=== PATIENT | male | born 1960 | race Caucasian/White ===

== ENCOUNTER 2019-10-18 12:41 | Observation (INO) | payer OTHER, SELFPAY ==
[2019-10-17 15:12] VITALS: BMI 30.5
[2019-10-17 17:24] VITALS: BMI 30.5
[2019-10-18] VITALS (13 sets, daily range): BP systolic 94–161; BP diastolic 65–83; PULSE 77–110; RESP 11–18; TEMP 36.4–36.7; O2SAT 93–98
[2019-10-18 06:24] LABS: Glucose Point of Care 168 mg/dL (70-110)
[2019-10-18] MEDS: sodium chloride 0.9% 1,000 ML 30 ML IV (06:28)
--- NOTE | 2019-10-18 06:49 | ANES.PREANES ---
Pre-Anesthetic Assessment Pre-Anesthetic Assessment: Height/Weight: Height 1.83 m Weight 102.058 kg Temp Pulse Resp BP Pulse Ox 97.5 F L 77 18 140/81 98 10/18/19 06:07 10/18/19 06:07 10/18/19 06:07 10/18/19 06:07 10/18/19 06:07 Preop Diagnosis: Neck pain Proposed Procedure: Operation Date: 10/18/19 07:00 Proposed Procedures p Anterior Cervical Discectomy&Fusion 1Lev(Not Applicable) - Kilo Eden MD Familial anesthetic complications: No trouble with anesthesia Was Beta Deven taken within 24 hours: N/A Last intake: Intake Last Liquid Date 10/17/19 Last Liquid Time 20:00 Last Solid Date 10/17/19 Last Solid Time 20:00 Social: Social History: Tobacco (former 2 ppd), No alcohol and No tobacco Exam: Pre-Anes Outpt Exam: alert, oriented x 3, clear to auscultation bilaterally and regular rate & rhythm Airway: Cervical ROM: Other (limited extension due to myelopathy) MP: 4 Additional comments: missing Pulmonary: Pulmonary: None reported CV/HEM: CV/HEM: HTN : : None reported Hepatic: Hepatic: None reported GI: GI: None reported Metabolic: Metabolic: DM and Hyperlipidemia Comments: chapo [facility] [place]/sk: Comments: neck pain Neuropsych: Neuropsych: None reported Anesthetic Plan: ASA status: II Anesthesia: General Risk of > 500 ml blood loss (7ml/kg in children): No Meds/Allergies Current Medications: Current Medications Generic Name Dose Route Start Last Admin Trade Name Freq PRN Reason Stop Dose Admin Sodium Chloride 1,000 mls @ 30 ml s/hr 10/18/19 06:15 10/18/19 06:28 Sodium Chloride 0.9% IV 10/19/19 06:14 30 mls/hr .Q24H ALLIE Administration PFSH Anesthesia PFSH: Social History (Updated 10/17/19 @ 14:44 by Ginger Myers) Smoking and tobacco status: former smoker Alcohol intake: former Data Anesthesia Other Labs: Laboratory Results - last 48 hr 10/18/19 06:18 POC Glucose 168 Cardiac Studies: No Data to Display
--- NOTE | 2019-10-18 07:03 | PM.HPUD ---
H&P update H&P Update: DATE OF SURGERY/PROCEDURE: 10/18/19 DATE H&P PERFORMED: 10/12/19 H&P UPDATE INFORMATION: H&P completed within last 30 days, No changes to prior documentation and H&P to be scanned into chart PREOP DIAGNOSIS: Intervertebral disc disorder with myelopathy, midcervical PLANNED PROCEDURE: Operation Date: 10/18/19 07:00 Proposed Procedures Anterior Cervical Discectomy/fusion/fixation, C4-C5 Full H&P Medications/Allergies: Current Medications: Current Medications Generic Name Dose Route Start Last Admin Trade Name Freq PRN Reason Stop Dose Admin Sodium Chloride 1,000 mls @ 30 ml s/hr 10/18/19 06:15 10/18/19 06:28 Sodium Chloride 0.9% IV 10/19/19 06:14 30 mls/hr .Q24H ALLIE Administration Perinent History: Medical/Surgical History: Medical History (Updated 10/15/19 @ 08:52 by TRISTAN Garay) Hypertension (Chronic) Family History: Family History (Updated 10/12/19 @ 15:10 by Leti Calix LPN) Other Diabetes Social History: Social History Smoking and tobacco status: former smoker Alcohol intake: former
[2019-10-18] MEDS: vancomycin 1,000 MG in sodium chloride 0.9% 250 ML 250 MG IV (07:32)
--- NOTE | 2019-10-18 07:32 | PM.OP2 ---
 Brief Operative Note: Date of procedure: 10/18/19 Pre-op diagnosis: Intervertebral disc disorder with myelopathy, midcervical Post-op diagnosis: other (Same, with instability of joint) Procedure Done: C4-C5 ACDFF Surgeon: Kilo Eden Estimated blood loss (mL): 60 Complications: None. Post-op Plan: To PACU, then surgical bell. Condition: stable Disposition: PACU Coding Level of Care Code Acute Nursing Informatics Clinical Analyst for Myriam Cuadra
--- NOTE | 2019-10-18 07:38 | XR_ITS ---
WS: [id number] INTRAOPERATIVE LATERAL CERVICAL SPINE HISTORY: surgery COMPARISON: 06/15/2019 Lateral radiograph obtained in the OR with a metallic marker indicating the anterior C3-4 disc space. Patient is intubated. XR/XR cervical spine [facility] [id number] IMPRESSION: Intraoperative planning marker at anterior C3-4 disc level.
--- NOTE | 2019-10-18 08:17 | SUR.OPER ---
SURGIFOAM 1 SPONGE WAS USED IN THE NECK. LOT [id number] EXP 03/26/23.
--- NOTE | 2019-10-18 08:26 | XR_ITS ---
WS: [id number] INTRAOPERATIVE LATERAL CERVICAL SPINE HISTORY: SURGERY COMPARISON: 06/15/2019 Lateral radiograph obtained in the OR with a metallic marker indicating the anterior C4-5 disc level. Soft tissue spacers are now present. XR/XR cervical [facility] [id number] IMPRESSION: Intraoperative planning marker at anterior C4-5 disc space.
--- NOTE | 2019-10-18 08:58 | XR_ITS ---
WS: [id number] CERVICAL SPINE 2 VIEWS HISTORY: Recent surgical surgery. COMPARISON: Study earlier the same day. Interval placement of an anterior cervical plate and interbody spacer at C4-5. No complications are e vident. Endotracheal tube has been removed. XR/XR cervical spine 3V* [id number] IMPRESSION: Satisfactory postoperative anterior cervical fusion plate and screws at C4-5.
--- NOTE | 2019-10-18 11:57 | SUR.PHASEI ---
1155 PATIENT TO PACU AT THIS TIME FROM OR VIA [facility]. RR EVEN AND NON LABORED. PWD. PLACED ON SIMPLE MASK AT 8L. SPO2 98%. DRESSING TO ANTERIOR NECK, CDI. [place] COLAR IN PLACE.
--- NOTE | 2019-10-18 12:41 | SUR.PHASEI ---
1227 PATIENT TO MED SURG AT THIS TIME. A/OX3. RR EVEN AND UNLABORED. DRESSING TO ANTERIOR NECK, SMALL SPOT OF BLOOD NOTED. COLLAR IN PLACE. PATIENT AMBULATORY FROM GURNEY TO BED WITH STEADY GAIT. NO FAMILY PRESENT IN WAITING ROOM.
[2019-10-18] MEDS: docusate sodium 100 mg Capsule PO (17:09)
[2019-10-18] MEDS: sodium chloride 0.9% SDV 10 mL (17:11)
[2019-10-18] MEDS: levofloxacin-dextrose 5 % 750 MG/150 ML PREMIX 150 MG IV (17:11)
--- NOTE | 2019-10-18 20:27 | PM.DCS ---
Discharge Providers Date of Admission: 10/18/19 12:41 Date of Discharge: Date of Discharge: October 18, 2019 Attending Provider at Admission: Kilo Eden MD Attending Provider at Discharge: Kilo Eden MD Primary Care Provider: EMMA IZQUIERDO Diagnoses at Discharge Discharge Diagnosis (1) Cervical disc disorder with myelopathy of mid-cervical region: Status: Acute Problem details: Doing well after C4-C5 ACDFF performed earlier today. He appears reasonable for discharge home today, as desired. (2) Instability of joint: Status: Acute Reason for Visit Reason for Visit: Reason For Visit: Cervical Disc Disorder With Myelopathy of Mid Cerv Brief History: The patient is a 59-year-old white male with symptomatic, radiographically confirmed cervical disc/joint disease and associated neural impingement. Imaging studies demonstrated dominant canal compromise at C4-C5, with associated mild spondylolisthesis. Conservative treatment measures had not provided adequate lasting symptom relief. After review of the diagnostic and treatment options with the risks/potential benefits/rationale for each, the patient requested to proceed with surgical decompression/fusion/fixation at the C4-C5 level. Hospital Course Hospital Course: Patient underwent C4-C5 anterior cervical discectomy/fusion/fixation on 10/18/2019. He tolerated the procedure well, and reported improvement in some preoperative symptoms immediately following surgery. He completed preoperative and postoperative intravenous antibiotic doses, and the physical therapy postoperative spine protocol. He was ambulatory, voiding, and tolerating regular diet prior to requested discharge home on the evening of the date of surgery. Physical Exam Const: COMMON NORMALS: no apparent distress GENERAL APPEARANCE: cooperative and comfortable Neck/C-Spine: CERVICAL SPINE: Yes collar present Resp: COMMON NORMALS: normal respiratory effort EFFORT & INSPECTION: Yes able to speak in complete sentences and No stridor Neuro: COMMON NORMALS: moves all extremities and no focal motor deficits (bilateral upper extremities) Psych: COMMON NORMALS: speech normal ATTITUDE: Yes calm and Yes engaged ACTIVITY/MOTOR BEHAVIOR: Yes appropriate eye contact SPEECH: Yes normal speech MOOD & AFFECT: Yes euthymic mood INSIGHT: insight good JUDGEMENT: judgment good Skin: WOUNDS: Yes surgical site (surgical site dressing clean/dry/intact) Discharge Data Data Completed and Pending: Completed Studies During Hospitalization Category Date Time Status XR cervical spine 1 view portable [ XR cervical spine Exams 10/18/19 07:38 Completed 1ort [id number]] Rou justin XR cervical spine 1 view portable [ XR cervical spine Exams 10/18/19 08:26 Completed 1Vport [id number]] Rou justin XR cervical spine 3V* [id number] Routine Exams 10/18/19 08:58 Completed Pathology: Surgic al [PTH] Routine Pth 10/18/19 11:57 Completed Imaging^: c-spine x-rays:: Attestation: I personally reviewed and interpreted this imaging study as follows: (Postop changes of recent C4-C5 ACDFF, with no noted complications.) Procedures Performed: C4-C5 anterior cervical discectomy with osteophytectomy. C4-C5 anterior cervical plate and screw fixation. C4-C5 placement of intervertebral prosthetic device. C4-C5 anterior cervical fusion utilizing morselized autograft. IV antibiotics. Physical Therapy. Vitals: Last Vital Signs Temp 97.6 F 10/18/19 17:53 Pulse 99 10/18/19 13:45 Resp 18 10/18/19 17:53 BP 150/83 10/18/19 13:45 Pulse Ox 95 10/18/19 17:53 Discharge Plan Discharge Patient Disposition: Home, Self-Care Condition: Stable Prescriptions: [place] 7.5-325 mg tablet 1 tab PO Q4H PRN (Reason: pain) Qty: 20 RF: 0 Continued lisinopril 20 mg tablet 20 mg PO DAILY RF: 0 meloxicam 7.5 mg tablet 7.5 mg PO DAILY RF: 0 metformin 500 mg tablet 500 mg PO DAILY RF: 0 tizanidine 4 mg capsule 4 mg PO BID PRN (Reason: Muscle Spasm) RF: 0 acetaminophen [Tylenol Arthritis Pain] 650 mg tablet extended release 650 mg PO Q8H RF: 0 cholecalciferol (vitamin D3) 50,000 unit capsule 50,000 unit PO DAILY RF: 0 atorvastatin 80 mg Tablet 40 mg PO DAILY RF: 0 Discharge Orders: Discharge Order (Routine); Ordered 10/18/19 Ordered By: Kilo Eden Referrals: Kilo Eden MD [Physician] - 2 weeks (AP/lateral c-spine x-rays prior to visit. Please schedule an appointment with Dr. Eden for 2 weeks from today. Please contact [place] for prior authorization prior to recieving x rays and appointment with Dr. Eden. Please bring your medication with you to appointment.) Discharge Diet: Usual diet Discharge Activity: Limit activity as instructed Patient Instructions: Hydrocodone/Acetaminophen (By mouth), Hypertension, Anterior Cervical Discectomy (DC) Activity Restrictions/Additional Instructions: Activity -Cervical fusion: Wear cervical collar 24 hours a day. Change as necessary for showering, shaving, or if it becomes soiled. -No lifting or reaching overhead. - No driving until office followup visit - No lifting/pushing/pulling over 10 pounds - Avoid twisting or bending - Walking is encouraged - Home exercise per physical therapist - You may engage in sexual intercourse at any time as long as it is comfortable for you - Check with your doctor before returning to work. Notify your doctor if you develop: - temperature of 101.5 degrees F. or higher - redness or swelling of the incision - Foul drainage - increasing pain - increasing numbness or tingling in the arms or legs - New or increasing problems with vision, balance, memory, speaking, nausea or vomiting Hygiene: - Showering is okay - No tub baths or soaking Other: Remove outer bandage 3 days after surgery. If you have paper strips, leave in place until they fall off on their own. If you have stitches, keep your incision dry until the stitches are removed. Your doctor's office is available to answer any questions from 7 AM to 5:00 PM, Tuesday through at [phone]. After hours, go to the emergency room at [facility] or call 911 for assistance. Discharge Date/Time: 10/18/19 18:46 Discharge Attestations Time Spent in Discharge Care*: other (postop global) Quality Metrics Clinical Quality Measures During this hospital stay, did patient experience: None Coding Level of Care Code Acute Travel Registered Nurse Icu for Arong Fwd Exam Problem Focused Diagnoses Cervical disc disorder with myelopathy of mid-cervical region M50.020 Instability of joint M25.30 Comment postop global
--- NOTE | 2019-10-19 11:27 | PM.OP ---
Operative Report Date of procedure: 10/18/19 Pre-op Diagnosis: Intervertebral disc disorder with myelopathy, midcervical Post-op diagnosis: same (With instability of joint) Procedure Done: C4-C5 anterior cervical discectomy with osteophytectomy. C4-C5 anterior cervical plate/screw fixation. Placement of C4-C5 intervertebral prosthetic device. C4-C5 anterior cervical fusion with morselized autograft. Implants: ACIS ProTi Spacer Synthes Vectra plate/screws Specimens removed/disposition: C4-C5 disc to pathology. Pathology: other (C4-C5 disc) Surgeon: Kilo Eden Anesthesia: General Estimated blood loss (mL): 60 Complications: None. Condition: stable Disposition: PACU Brief History: The patient is a 59-year-old white male with symptomatic, radiographically confirmed cervical disc/joint disease and associated neural impingement. Imaging studies demonstrated dominant canal compromise at C4-C5, with associated mild spondylolisthesis. Conservative treatment measures had not provided adequate lasting symptom relief. After review of the diagnostic and treatment options with the risks/potential benefits/rationale for each, the patient requested to proceed with surgical decompression/fusion/fixation at the C4-C5 level. Procedure: After routine preoperative evaluation and informed consent were obtained, the patient was taken to the Operating Room and positioned supine on the operating table. He was placed under general endotracheal anesthesia by Anesthesia personnel. He was fit in the [place] tongs for the application of in-line cervical traction. The anterolateral neck on the left was prepared with hair clippers, and a proposed transverse skin incision was marked with a sterile skin marker. Regional anatomy and intraoperative radiography were utilized for localization purposes. The area was scrubbed with Betadine and prepped with DuraPrep. Sterile towels and drapes were applied, and an [place] surgical barrier was placed. The proposed incision site was infiltrated with 1% Xylocaine with Epinephrine. A skin incision was made and carried down into the subcutaneous tissues. The platysma was identified and divided in the direction of its fibers. A plane was dissected just medial to the carotid sheath and lateral to the midline esophagus and trachea. The prevertebral soft tissues were bluntly dissected free of the anterior margin of the cervical spine. Longus coli muscles were freed from their medial attachments, and deep self-retaining retractors were placed. Marked anterior osteophyte overgrowth was demonstrated. Intraoperative radiography verified the desired surgical level. Rongeurs and the [place] high speed drill with jaswant jaja were utilized to expose the disc space anteriorly. The C4-C5 interspace was then entered, and discectomy was accomplished utilizing various curettes, pituitary rongeurs, and the high speed drill. Posterior marginal osteophytes were resected with the thin-foot plate [place] rongeurs. The medial aspects of the neural foramina were enlarged in a similar manner. Posterior longitudinal ligament was divided and resected as necessary to further the decompression. The drill/jaswant jaja were used for ostephyte resection and endplate preparation. At the completion of the decompression, no residual central canal or neural foraminal impingement was identified upon probing with the right angle nerve hook. Decompression was felt to be adequate and the disc space was sized. A 9 mm ACIS ProTi lordotic/medium Spacer was chosen. The Spacer was packed with morselized autograft obtained from the osteophytectomy portions of the procedure. The Spacer was placed within the C4-C5 interspace while in-line cervical traction was applied via the [place] tongs. Spacer placement was facilitated by use of the mallet and impaction tools. Once the Spacer was in good position, a Synthes Vectra plate of the desired size was chosen. The plate was secured to the C4 and C5 vertebral bodies with bilateral 4 mm x 14 mm self-drilling screws. Final screw tightening was performed, and the screws were noted to engage the locking mechanisms within the plate at each site. The construct was inspected and found to be in good position and secure. The wound was copiously irrigated with sterile saline and antibiotic irrigation. Hemostasis was ensured with the bipolar electrocautery. Wound closure was performed in multiple layers with 2-0 Vicryl Plus simple interrupted closure of the platysma and deep dermis as separate layers. Final skin closure was performed with 4-0 Vicryl Plus in a running subcuticular pattern. Steri-Strips were applied, and a sterile dressing was placed. The patient was released from the [place] tongs and fit in a [place] collar. He was extubated without incident. He was transferred onto the Recovery Room cart in the supine position. The patient tolerated the procedure well.
== END 2019-10-18 18:46 | disposition home or self-care (01) ==
LOC: MEDSURG 12:42
PROVIDERS: Admitting Provider Specialist; Visit Provider Specialist
PROC: 0RB30ZZ Excision of Cervical Vertebral Disc, Open Approach (ICD-10-PCS; CPT 22551; principal; 2019-10-18 07:00)
DX: M50.021 Cervical disc disorder at C4-C5 level with myelopathy (principal); M53.2X2 Spinal instabilities, cervical region; I10 Essential (primary) hypertension; Z83.3 Family history of diabetes mellitus; Z87.891 Personal history of nicotine dependence
CPT/HCPCS: 20936; 22551; 22853; 12345; 36416; 72020; 72040; 82962; 88304; 96365; 97110; 97161; C1713; G0378; J0131; J1100; J1885; J1956; J2001; J2405; J2704; J3010; J3370; J3490; J7030; J7050; L0172; L0174

== ENCOUNTER 2019-11-01 09:07 | Outpatient (CLI) | payer OTHER, SELFPAY ==
--- NOTE | 2019-11-01 09:19 | XR_ITS ---
WS: [id number] CERVICAL SPINE 2 VIEWS HISTORY: Arthrodesis status COMPARISON: 10/18/2019 Anterior cervical fusion hardware at C4-5 with interbody spacer. No change in alignment of the fusion or interbody spacer. No subsidence. Large bridging anterior osteophytes at C2 and C3. Soft tissues are normal. XR/XR cervical spine 3V* [id number] IMPRESSION: 1. Anterior cervical fusion with interbody spacer at C4-5 is intact with no ch elizabeth. 2. Large anterior bridging osteophytes at C2 and C3.
== END 2019-11-01 09:08 | disposition home or self-care (01) ==
PROVIDERS: Visit Provider Specialist
DX: Z98.1 Arthrodesis status (principal); M25.78 Osteophyte, vertebrae
CPT/HCPCS: 72040

== ENCOUNTER 2019-11-29 09:47 | Outpatient (CLI) | payer OTHER, SELFPAY ==
--- NOTE | 2019-11-29 10:30 | CT_ITS ---
WS: [id number] CT CERVICAL SPINE TECHNIQUE: Noncontrast CT of the cervical spine with coronal and sagittal reformatted images. CLINICAL INFORMATION: s/p cervical spinal fusion COMPARISON: MRI June 15, 2019 DLP: 1880.[address] scans at [facility] use at least one of these dose optimization techniques: automat ed exposure control; mA and/or kV adjustment per patient size (includes targeted exams where dose is matched to clinical indication); or iterative reconstruction. FINDINGS: Straightening of the normal cervical lordosis. Postoperative changes are new since the prior MRI with anterior interbody cervical fusion C4-5. No evidence of hardware loosening. C2-C3: Mild right greater than left bony foraminal narrowing. Spinal canal is patent. Mild facet arth ropathy. C3-C4: Disc osteophyte complex with endplate ridging. Moderate left and mild right bony foraminal misty rowing. Mild central canal stenosis. C4-C5: Postoperative changes anterior interbody cervical fusion. Moderate bilateral bony foraminal na rrowing. Mild central canal stenosis. C5-C6: Disc osteophyte complex with endplate ridging. Mild bilateral bony foraminal narrowing. Spinal canal is patent. C6-C7: Moderate to severe left and mild right bony foraminal narrowing. Spinal canal is patent. C7-T1: No significant disc bulging. Spinal canal and foramen are patent. Visualized posterior nasopharynx: Normal. Prevertebral soft tissues: Normal. CT/CT cervical spin wo con* [id number] IMPRESSION: 1. Postoperative changes ACDF C4-C5. No evidence of hardware loosening. 2. No high-grade central canal stenosis. Mild central canal narrowing C3-C4 an d C4-C5. 3. Bony foraminal narrowing worse at left C3-C4, bilateral C4-C5, and left C6- C7.
== END 2019-11-29 09:48 | disposition home or self-care (01) ==
LOC: RADWPI 09:57
PROVIDERS: Visit Provider Licensed Practical Nurse
DX: Z98.1 Arthrodesis status (principal)
CPT/HCPCS: 72125

== ENCOUNTER 2019-12-18 07:52 | Outpatient (CLI) | payer OTHER, SELFPAY ==
--- NOTE | 2019-12-18 09:00 | CT_ITS ---
WS: [id number] CT CERVICAL SPINE TECHNIQUE: Noncontrast CT of the cervical spine with coronal and sagittal reformatted images. CLINICAL INFORMATION: S/P cervical fusion COMPARISON: November 29, 2019 DLP: 3033.[address] scans at [facility] use at least one of these dose optimization techniques: automat ed exposure control; mA and/or kV adjustment per patient size (includes targeted exams where dose is matched to clinical indication); or iterative reconstruction. FINDINGS: Straightening of the normal cervical lordosis. Anterior interbody cervical fusion C4-5. Anterior hype rtrophic changes of the cervical spine. Bony ankylosis in the lower cervical and upper thoracic spine . Normal C1-2 articulation. Straightening of the normal cervical lordosis. Postoperative changes are new since the prior MRI with anterior interbody cervical fusion C4-5. No evidence of hardware loosening. C2-C3: Mild right greater than left bony foraminal narrowing. Spinal canal is patent. Mild facet arth ropathy. C3-C4: Disc osteophyte complex with endplate ridging. Mild to moderate left and mild right bony salty inal narrowing. Mild central canal stenosis. C4-C5: Postoperative changes anterior interbody cervical fusion. Moderate bilateral bony foraminal na rrowing. Mild central canal stenosis. C5-C6: Disc osteophyte complex with endplate ridging. Mild bilateral bony foraminal narrowing. Spinal canal is patent. C6-C7: Moderate left and mild right bony foraminal narrowing. Spinal canal is patent. C7-T1: No significant disc bulging. Spinal canal and foramen are patent. CT/CT cervical spin wo con* [id number] IMPRESSION: 1. Straightening of the normal cervical lordosis with intervertebral cervical fusion C4-5. No evidence of hardware loosening. Hardware appears in good positi on. 2. Mild central canal stenosis C3-C4 and C4-C5. 3. Multilevel mild to moderate bony foraminal narrowing worse at left C3-C4, b ilateral C4-5, and left C6-C7.
== END 2019-12-18 07:53 | disposition home or self-care (01) ==
LOC: RADWPI 07:56
PROVIDERS: Visit Provider Licensed Practical Nurse
DX: Z98.1 Arthrodesis status (principal); M48.02 Spinal stenosis, cervical region
CPT/HCPCS: 72125

== ENCOUNTER → 2020-02-11 13:29 | Outpatient (BNVA) | payer OTHER, SELFPAY | PROVIDERS: Visit Provider Specialist | DX: M50.30 Other cervical disc degeneration, unspecified cervical region (principal); M75.51 Bursitis of right shoulder; M54.81 Occipital neuralgia; Z87.891 Personal history of nicotine dependence | CPT/HCPCS: 20550; 99214 ==

== ENCOUNTER 2020-02-26 07:04 | Outpatient (CLI) | payer OTHER, SELFPAY ==
--- NOTE | 2020-02-26 08:00 | MR_ITS ---
WS: [id number] MRI CERVICAL SPINE HISTORY: neck pain COMPARISON: 06/15/2019 and 12/18/2019 Straightening of the normal cervical lordosis. Multilevel degenerative changes throughout the cervica l spine. Anterior cervical fusion at C4-5 with interbody spacer. No marrow edema or acute fracture. M ild stable anterior wedging of T7. Anterior hypertrophic bone changes are noted greatest at the C2 le molly. Signal within the cervical cord is normal. Visualized posterior fossa is unremarkable. Craniocervical junction, C1 and C2 relationship, odontoid process and soft tissues are normal. C2-C3: Mild bilateral foraminal stenosis due to osteophytes. C3-C4: Hypertrophic osteophytic ridging. Mild encroachment upon the ventral thecal sac. Mild central and bilateral foraminal stenosis. C4-C5: Moderate diffuse osteophytic ridging around the vertebral bodies with disc bulging and facet a rthritis. Moderate central with moderate to severe bilateral foraminal stenosis. C5-C6: Diffuse osteophytic ridging and disc disease with facet arthropathy. Moderate central and laurita ateral foraminal stenosis. C6-C7: Diffuse osteophytic ridging and diffuse disc bulging. Mild central stenosis with moderate bila teral foraminal stenosis, greatest stenosis on the LEFT. C7-T1: Normal. Paravertebral soft tissues are negative for acute process. MR/MR cervical spin wo con* [id number] IMPRESSION: 1. Multilevel significant central and foraminal stenosis. 2. Prior anterior cervical fusion at C4-5 with interbody spacer is intact. 3. No acute fracture. 4. Moderate central stenosis with moderate to severe bilateral foraminal steno sis at C4-5. 5. Moderate central and bilateral foraminal stenosis at C5-6. 6. Mild central stenosis and moderate bilateral foraminal stenosis at C6-7.
--- NOTE | 2020-02-26 08:45 | MR_ITS ---
WS: [id number] MRI RIGHT SHOULDER HISTORY: shoulder pain COMPARISON: 07/24/2018 TECHNIQUE: Multiplanar sequences of the shoulder joint are submitted. Moderate AC joint hypertrophy. There is a small amount of increased signal along the AC joint. Bony h ypertrophy of the distal clavicle with mild impingement upon the supraspinatus muscle. There is a sma ll osteophyte from the distal undersurface of the acromion with mild encroachment upon the rotator cu ff. No os acromion. There is a very small amount of fluid in the subacromial and subdeltoid bursa. No rotator cuff tear i s identified. Increased signal and thickening of the subscapularis tendon from tendinopathy. There is micro metallic artifact present suggestive of prior surgery on the RIGHT shoulder. No muscle atrophy or retraction of the tendons. No muscle edema. Biceps tendon remains in normal position. No fluid al mahesh the tendon sheath. No significant narrowing of the glenohumeral joint. There is intrasubstance degeneration of the labru m but no complete tear is identified. MR/MR shoulder RT wo con* [id number] IMPRESSION: 1. Moderate AC joint arthropathy with mild encroachment upon the supraspinatus muscle. 2. Subscapularis tendinopathy. No rotator cuff tear is identified. 3. Mitral metallic artifact is present around the shoulder greatest at the AC joint suggesting prior surgery. 4. No labral tear.
== END 2020-02-26 07:05 | disposition home or self-care (01) ==
LOC: RADSHAW 07:08
PROVIDERS: Visit Provider Specialist
DX: M25.511 Pain in right shoulder (principal); M12.811 Other specific arthropathies, not elsewhere classified, right shoulder; M54.2 Cervicalgia; M48.02 Spinal stenosis, cervical region; M43.22 Fusion of spine, cervical region
CPT/HCPCS: 72141; 73221

== ENCOUNTER → 2020-03-20 07:50 | Outpatient (BNVA) | payer OTHER, SELFPAY | PROVIDERS: Visit Provider Specialist | DX: M75.51 Bursitis of right shoulder (principal); M54.81 Occipital neuralgia; M50.020 Cervical disc disorder with myelopathy, mid-cervical region, unspecified level; M79.7 Fibromyalgia; Z71.89 Other specified counseling | CPT/HCPCS: 64450; 99213; J1030; J3490 ==

== ENCOUNTER → 2020-04-24 09:49 | Outpatient (BNVA) | payer OTHER, SELFPAY | PROVIDERS: Visit Provider Specialist | DX: M79.7 Fibromyalgia (principal); M50.020 Cervical disc disorder with myelopathy, mid-cervical region, unspecified level; F17.220 Nicotine dependence, chewing tobacco, uncomplicated | CPT/HCPCS: 99213; J1030; J3490 ==

== ENCOUNTER → 2020-07-09 12:27 | Outpatient (BNVA) | payer OTHER, SELFPAY | PROVIDERS: Visit Provider Specialist | DX: G24.3 Spasmodic torticollis (principal); Z98.890 Other specified postprocedural states | CPT/HCPCS: 99214 ==

== ENCOUNTER → 2021-03-09 09:51 | Outpatient (BNVA) | payer OTHER, SELFPAY | PROVIDERS: PCP Nurse Practitioner Family; Visit Provider Specialist | DX: M50.020 Cervical disc disorder with myelopathy, mid-cervical region, unspecified level (principal); G24.3 Spasmodic torticollis; F17.220 Nicotine dependence, chewing tobacco, uncomplicated | CPT/HCPCS: 99213; 99214 ==

== ENCOUNTER → 2021-07-23 16:03 | Outpatient (BNVA) | payer OTHER, SELFPAY | PROVIDERS: PCP Nurse Practitioner Family; Visit Provider Nurse Practitioner Family | DX: M25.519 Pain in unspecified shoulder (principal); G89.11 Acute pain due to trauma; M25.559 Pain in unspecified hip | CPT/HCPCS: 73030; 73502; 80307 ==

== ENCOUNTER → 2021-09-02 12:05 | Outpatient (BNVA) | payer OTHER, SELFPAY | PROVIDERS: PCP Nurse Practitioner Family; Visit Provider Nurse Practitioner Family | DX: S49.91XA Unspecified injury of right shoulder and upper arm, initial encounter (principal); X58.XXXA Exposure to other specified factors, initial encounter; M19.011 Primary osteoarthritis, right shoulder | CPT/HCPCS: 73030 ==

== ENCOUNTER → 2022-04-27 08:10 | Outpatient (BNVA) | payer OTHER, SELFPAY | PROVIDERS: PCP Nurse Practitioner Family; Visit Provider Surgery | DX: K42.0 Umbilical hernia with obstruction, without gangrene (principal) | CPT/HCPCS: 99204 ==

== ENCOUNTER 2022-05-06 07:52 | Day surgery (SDC) | payer OTHER, SELFPAY ==
[2022-05-05 15:51] VITALS: BMI 29.8
[2022-05-06] VITALS (10 sets, daily range): BP systolic 112–178; BP diastolic 77–101; PULSE 62–80; RESP 12–18; TEMP 36.2–36.7; O2SAT 95–100
--- NOTE | 2022-05-06 08:07 | P.HP_ITS ---
Same Day Surgery H&P Indication for Procedure/HPI DATE OF PROCEDURE: May 06, 2022 CHIEF COMPLAINT/INDICATIONFOR SURGICAL PROCEDURE: hernia repair PREOP DIAGNOSIS: umbilical hernia PLANNED PROCEDURE: Operation Date: 05/06/22 09:30 Proposed Procedures p lap poss open umblicial hernia repair 17882(Not Applicable) - Sukhjinder Cobos MD Medications/Allergies* Home Medications Medication Instructions Recorded Confirmed Type acetaminophen 650 mg 650 mg PO Q8H PAIN 10/12/19 05/05/22 History tablet,extended release (Tylenol Arthritis Pain) cholecalciferol (vitamin D3) 1,250 50,000 unit PO DAILY 10/12/19 05/06/22 History mcg (50,000 unit) capsule lisinopril 20 mg tablet 20 mg PO DAILY 10/12/19 05/06/22 History metformin 500 mg tablet 500 mg PO BID 10/12/19 05/06/22 History tizanidine 4 mg capsule 4 mg PO BID PRN Muscle Spasm 10/12/19 05/05/22 History atorvastatin 80 mg tablet 40 mg PO DAILY 10/17/19 05/06/22 History glipizide 5 mg tablet 5 mg PO DAILY 04/27/22 05/06/22 History cyclobenzaprine 10 mg tablet 10 mg PO BEDTIME 05/05/22 05/05/22 History Allergies/Adverse Reactions Allergy/AdvReac Type Severity Reaction Status Date / Time Penicillins AdvReac Mild ADV-Weaknes Verified 04/27/22 08:26 s Pertinent History/Comorbid Conditions* Medical History (Updated 03/31/22 @ 11:54 by TRISTAN Murillo) Acute shoulder pain due to trauma Back pain Cervical disc disorder with myelopathy of mid-cervical region Hip pain, acute Hypertension Lumbar back pain with radiculopathy affecting left lower extremity Lumbar back pain with radiculopathy affecting right lower extremity Post-operative state Traumatic injury of right shoulder Surgical History (Updated 04/27/22 @ 08:55 by Sukhjinder Cobos MD) History of cervical spinal surgery (10/18/19) 10/18/2009 C4-C5 GAIL, Dr. Eden Status post colonoscopy Status post shoulder surgery Family History (Updated 11/29/19 @ 10:42 by Jessica Hyatt LPN) Diabetes Mother Social History Smoking and tobacco status: former smoker Household members: none Marital status: Single Current occupation: [employer] in [place], [place] History of recent travel: Yes (travel from [facility]) Pertinent Exam Findings alert, oriented x 3 and regular rate & rhythm Recommendations Surgery/Procedure today Coding Level of Care Code Acute Telephoto Installer for Myriam Cuadra
[2022-05-06] MEDS: sodium chloride 0.9% 1,000 ML 30 ML IV (08:30)
--- NOTE | 2022-05-06 08:37 | P.ANESASSM_ITS ---
Pre-Anesthetic Assessment Height/Weight: Height 1.83 m Weight 99.79 kg Temp Pulse Resp BP Pulse Ox O2 Del Method 97.2 F L 71 18 178/100 97 05/06/22 08:08 05/06/22 08:08 05/06/22 08:08 05/06/22 08:08 05/06/22 08:08 05/06/22 08:08 Preop Diagnosis: umbilical hernia Operation Date: 05/06/22 09:30 Proposed Procedures p lap poss open umblicial hernia repair 52978(Not Applicable) - Sukhjinder Cobos MD Familial anesthetic complications: none Was Beta Deven taken within 24 hours: N/A Was Clonidine taken within 24 hours: N/A Last intake: Intake Last Liquid Date 05/05/22 Last Liquid Time 18:00 Last Solid Date 05/05/22 Last Solid Time 18:00 Social No alcohol and No tobacco Exam alert, oriented x 3, clear to auscultation bilaterally and regular rate & rhythm Airway Submandibular: within normal limits Cervical ROM: within normal limits Mallampati: Class II Dentition: chipped CV/HEM Hypertension Metabolic Diabetes Mellitus and Hyperlipidemia Musc/skel Lower Back Pain chronic opioid Anesthetic Plan ASA status: 3 Anesthesia: General Medications/Allergies Home Medications Medication Instructions Recorded Confirmed Last Taken Type acetaminophen 650 mg 650 mg PO Q8H PAIN 10/12/19 05/05/22 10/17/19 History tablet,extended release (Tylenol Arthritis Pain) cholecalciferol (vitamin D3) 1,250 50,000 unit PO DAILY 10/12/19 05/06/22 05/05/22 History mcg (50,000 unit) capsule lisinopril 20 mg tablet 20 mg PO DAILY 10/12/19 05/06/22 05/05/22 History metformin 500 mg tablet 500 mg PO BID 10/12/19 05/06/22 05/05/22 History tizanidine 4 mg capsule 4 mg PO BID PRN Muscle Spasm 10/12/19 05/05/22 10/17/19 History atorvastatin 80 mg tablet 40 mg PO DAILY 10/17/19 05/06/22 05/05/22 History gabapentin 300 mg capsule 300 mg PO QID #120 caps 03/28/20 05/06/22 05/05/22 Rx naproxen 500 mg tablet 500 mg PO BID PRN pain 30 days #60 01/13/21 05/05/22 Unknown Rx tabs glipizide 5 mg tablet 5 mg PO DAILY 04/27/22 05/06/22 05/05/22 History cyclobenzaprine 10 mg tablet 10 mg PO BEDTIME 05/05/22 05/05/22 Unknown History oxycodone-acetaminophen 5 mg-325 1 tab PO Q6H PRN pain #20 tabs 05/06/22 Unknown Rx mg tablet (Percocet) Allergies Allergy/AdvReac Type Severity Reaction Status Date / Time Penicillins AdvReac Mild ADV-Weaknes Verified 04/27/22 08:26 s [facility] Anesthesia Medical History Acute shoulder pain due to trauma Back pain Cervical disc disorder with myelopathy of mid-cervical region Hip pain, acute Hypertension Lumbar back pain with radiculopathy affecting left lower extremity Lumbar back pain with radiculopathy affecting right lower extremity Post-operative state Traumatic injury of right shoulder Surgical History (Updated 05/06/22 @ 08:11 by Sukhjinder Cobos MD) History of cervical spinal surgery (10/18/19) 10/18/2009 C4-C5 ACDFF, Dr. Eden History of umbilical hernia repair (05/06/22) Status post colonoscopy Status post shoulder surgery Family History Mother Diabetes Social History Smoking and tobacco status: former smoker Household members: none Marital status: Single Current occupation: [employer] in [place], [place] History of recent travel: Yes (travel from [facility]) Data Anesthesia Cardiac Studies: No Data to Display
[2022-05-06] MEDS: ceFAZolin 2,000 MG in sodium chloride 0.9% (plus) 50 ML 100 MG IV (09:08)
[2022-05-06] MEDS: fentaNYL 50 mcg/mL INJ 2mL IVP (10:13)
--- NOTE | 2022-05-06 10:22 | P.OP_ITS ---
Operative Report Date of procedure: May 06, 2022 Pre-op diagnosis: Symptomatic incarcerated umbilical hernia Post-op diagnosis: Incarcerated umbilical hernia measuring 4 x 4 cm containing omentum Procedure done: Laparoscopic repair of incarcerated umbilical hernia with Ventralight ST mesh measuring 11 x 11 cm Pathology: none sent Surgeon: Sukhjinder Cobos Anesthesia: General Condition: stable Disposition: PACU Procedure: The patient was taken to the Operating Room and was intubated under general anesthesia after the antibiotic had been administered. The abdomen was prepped and draped in a sterile manner. Using a 15 blade, a 2-cm incision was made in the left upper quadrant in the anterior axillary line and pneumoperitoneum was created using Verres needle. A 10 mm Carlos Alberto port was placed and 15 mm of pneumoperitoneum was created after a 10 mm 30? scope had been introduced. 5 mm port was placed at the level of the umbilicus on the left side under direct visualization. The omental fat within the hernial sac was reduced. A spinal needle was introduced through the abdominal wall and the edges of the hernial defect were marked and measured 4 x 4 cm. A 4 cm margin was marked on the abdominal wall on the outer edge of the hernial defect. 11 x [address] mesh was selected and 4 separate 2-0 [place] sutures were placed at the 4 corners of the mesh. Grannie needle was passed through the stab incisions and used to grasp the free ends of the [place] sutures which were then used to pull the mesh up against the abdominal wall; 5 mm SecurStraps were placed 1 cm apart along the edge of the mesh to hold it against the abdominal wall. At the end of this, it was noted that the mesh was well positioned over the hernial defect. 20 cc of saline mixed with 20cc of Exparel mixed with 20cc of 0.25% Marcaine was infiltrated in the midclavicular line bilaterally under laparoscopic visualization for a TAP block. All ports were removed under direct visuali zation and there was no bleeding noted from the port sites. The external oblique aponeurosis was approximated at LUQ port site using figure of eight 0 Vicryl suture. The subcutaneous tissue was approximated using 3-0 Vicryl sutures. The skin at port sites were closed using subcuticular 4-0 Monocryl suture. The stab incisions and the port sites were covered with Dermabond. Abdominal binder was placed at the end of the procedure and the patient was extubated and transferred to recovery room in stable condition.
--- NOTE | 2022-05-06 13:47 | ANE.PACU2 ---
Inpatient post-anesthesia follow up: Airway intact: Yes Vital signs: Temperature 98.1 F Pulse Rate 80 Respiratory Rate 18 Blood Pressure 165/82 Pulse Oximetry 99 Oxygen Delivery Me thod Room Air Oxygen Flow Rate 6 Fraction of Inspir ed Oxygen Hydration adequate: Yes Nausea and vomiting: No Pain level: 3 Mental status: Baseline
[2022-05-07 09:59] LABS: Glucose Point of Care 127 mg/dL (70-110)
== END 2022-05-06 11:44 | disposition home or self-care (01) ==
PROVIDERS: PCP Nurse Practitioner Family; Visit Provider Surgery
PROC: 0WQF4ZZ Repair Abdominal Wall, Percutaneous Endoscopic Approach (ICD-10-PCS; CPT 49653; principal; 2022-05-06 09:20)
DX: K40.30 Unilateral inguinal hernia, with obstruction, without gangrene, not specified as recurrent (principal); I10 Essential (primary) hypertension; E11.9 Type 2 diabetes mellitus without complications; E78.5 Hyperlipidemia, unspecified; Z79.891 Long term (current) use of opiate analgesic; Z87.891 Personal history of nicotine dependence; Z98.1 Arthrodesis status
CPT/HCPCS: 49653; 36416; 82962; C1781; C9290; J1100; J1170; J2405; J2704; J2710; J3010; J3490; J7030

== ENCOUNTER → 2022-05-18 08:16 | Outpatient (BNVA) | payer OTHER, SELFPAY | PROVIDERS: PCP Nurse Practitioner Family; Visit Provider Surgery | DX: Z98.890 Other specified postprocedural states (principal) | CPT/HCPCS: 99024 ==

== ENCOUNTER → 2022-11-18 11:40 | Outpatient (BNVA) | payer OTHER, SELFPAY | PROVIDERS: PCP Nurse Practitioner Family; Visit Provider Specialist | DX: G24.3 Spasmodic torticollis (principal); M50.020 Cervical disc disorder with myelopathy, mid-cervical region, unspecified level | CPT/HCPCS: 99214 ==

== ENCOUNTER → 2023-03-18 07:42 | Outpatient (BNVA) | payer OTHER, SELFPAY | PROVIDERS: Visit Provider Specialist | DX: G24.3 Spasmodic torticollis (principal) | CPT/HCPCS: 64616; J0585 ==

== ENCOUNTER → 2023-06-10 07:47 | Outpatient (BNVA) | payer OTHER, SELFPAY | PROVIDERS: Visit Provider Specialist | DX: G24.3 Spasmodic torticollis (principal); M50.021 Cervical disc disorder at C4-C5 level with myelopathy | CPT/HCPCS: 64616; J0585 ==

== ENCOUNTER → 2023-09-09 07:26 | Outpatient (BNVA) | payer OTHER, SELFPAY | PROVIDERS: Visit Provider Specialist | DX: G24.3 Spasmodic torticollis (principal) | CPT/HCPCS: 64616 ==

== ENCOUNTER → 2023-12-16 07:57 | Outpatient (BNVA) | payer OTHER, SELFPAY | PROVIDERS: Visit Provider Specialist | DX: G24.3 Spasmodic torticollis (principal); M50.020 Cervical disc disorder with myelopathy, mid-cervical region, unspecified level | CPT/HCPCS: 64616; J0585 ==

== ENCOUNTER → 2024-03-23 07:21 | Outpatient (BNVA) | payer OTHER, SELFPAY | PROVIDERS: Visit Provider Specialist | DX: G24.3 Spasmodic torticollis (principal); M50.020 Cervical disc disorder with myelopathy, mid-cervical region, unspecified level | CPT/HCPCS: 64616; J0585 ==

== ENCOUNTER → 2024-08-24 14:35 | Outpatient (BNVA) | payer OTHER, SELFPAY | PROVIDERS: Visit Provider Specialist | DX: G24.3 Spasmodic torticollis (principal); M50.020 Cervical disc disorder with myelopathy, mid-cervical region, unspecified level | CPT/HCPCS: 64616; J0585 ==

== ENCOUNTER → 2024-11-23 14:47 | Outpatient (BNVA) | payer OTHER, SELFPAY | PROVIDERS: Visit Provider Specialist | DX: G24.3 Spasmodic torticollis (principal) | CPT/HCPCS: 64616; J0585 ==

== ENCOUNTER → 2025-02-22 14:45 | Outpatient (BNVA) | payer OTHER, SELFPAY | PROVIDERS: Visit Provider Specialist | DX: G24.3 Spasmodic torticollis (principal) | CPT/HCPCS: 64616; J0585; J9999 ==

== ENCOUNTER → 2025-08-01 14:38 | Outpatient (BNVA) | payer OTHER, SELFPAY | PROVIDERS: Visit Provider Specialist | DX: G24.3 Spasmodic torticollis (principal) | CPT/HCPCS: 64616; J0585; J9999 ==

== ENCOUNTER 2025-08-07 06:54 | Outpatient (CLI) | payer OTHER, SELFPAY ==
--- NOTE | 2025-08-07 07:30 | CT_ITS ---
WS: [id number] CT CERVICAL SPINE TECHNIQUE: Noncontrast CT of the cervical spine with coronal and sagittal reformatted images. CLINICAL INFORMATION: M50.020 - Cervical disc disorder with myelopathy, mid-cer... COMPARISON: MRI [address] 2019 DLP: 345.[address] scans at [facility] use at least one of these dose optimization techniques: automated exposure control; mA and/or kV adjustment per patient size (includes targeted exams where dose is matched to clinical indication); or iterative reconstruction. FINDINGS: Straightening of the normal cervical lordosis. ACDF C4-5. 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 Normal C1-2 articulation. No evidence of hardware loosening. Anterior bridging osteophytes at C2-C3 and C3-C4. Ossification of the nuchal ligament. C2-C3: Mild right greater than left bony foraminal narrowing. Spinal canal is patent. Mild facet arthropathy. C3-C4: Disc osteophyte complex with endplate ridging. Moderate left and mild right bony foraminal narrowing. Mild central canal stenosis. C4-C5: Postoperative changes anterior interbody cervical fusion. Moderate bilateral bony foraminal narrowing. Mild central canal stenosis. C5-C6: Disc osteophyte complex with endplate ridging. Mild LEFT greater than RIGHT bony foraminal narrowing. Spinal canal is patent. C6-C7: Moderate left and mild right bony foraminal narrowing. Spinal canal is patent. C7-T1: Ankylosis of C7-T1 disc space. Spinal canal and foramen are patent. CT/CT cervical spin wo con* [id number] IMPRESSION: 1. No significant change compared to previous. 2. Stable ACDF C4-5. 3. No evidence of hardware loosening. 4. Stable mild central canal stenosis C3-C4 and C4-C5. 5. Mild to moderate bony foraminal narrowing worse at LEFT C3-C4 bilateral C4- C5 and LEFT C6-7
== END 2025-08-07 06:55 | disposition home or self-care (01) ==
LOC: RAD 06:56
PROVIDERS: Visit Provider Specialist
DX: M50.020 Cervical disc disorder with myelopathy, mid-cervical region, unspecified level (principal); G24.3 Spasmodic torticollis; M40.50 Lordosis, unspecified, site unspecified; M25.78 Osteophyte, vertebrae; M47.812 Spondylosis without myelopathy or radiculopathy, cervical region; M48.02 Spinal stenosis, cervical region; M43.22 Fusion of spine, cervical region; M43.25 Fusion of spine, thoracolumbar region
CPT/HCPCS: 72125